=== PATIENT | female | born 1950 | race Caucasian/White ===

== ENCOUNTER 2020-11-26 08:26 | Outpatient (CLI) | payer MEDICARE, OTHER | END 2020-11-26 08:27 | disposition home or self-care (01) | LOC: CSHULT 08:26 | PROVIDERS: ATTEND Internal Medicine Gastroenterology | DX: R10.13 Epigastric pain (principal); K21.9 Gastro-esophageal reflux disease without esophagitis; R14.2 Eructation; K59.09 Other constipation; K22.70 Barrett's esophagus without dysplasia; K76.0 Fatty (change of) liver, not elsewhere classified | CPT/HCPCS: 93975 ==

== ENCOUNTER 2022-07-09 09:01 | Outpatient (CLI) | payer MEDICARE ==
[2022-07-09] MEDS ORDERED: Iopamidol 300 61% 100 ML VIAL FS ONE (12:48)
== END 2022-07-09 09:02 | disposition home or self-care (01) ==
LOC: CSHCT 09:01
PROVIDERS: ATTEND Family Medicine
DX: K80.20 Calculus of gallbladder without cholecystitis without obstruction (principal); R63.4 Abnormal weight loss; S22.41XD Multiple fractures of ribs, right side, subsequent encounter for fracture with routine healing
CPT/HCPCS: 71260; 74160; 82565; Q9967